=== PATIENT | male | born 2000 | race Caucasian/White ===

== ENCOUNTER 2021-09-03 21:09 | Emergency (ER) | payer SELFPAY ==
[~2021-09-03] VITALS: Ht 177.8 cm; Wt 86.2 kg
[2021-09-03 21:16] VITALS: BP 160/90
--- NOTE | 2021-09-03 21:16 | NUR ---
EPISTAXIS X 1.5 HOURS. "I WAS IN THE SHOWER, CLEARING MY THROAT AND IT JUST STARTED BLEEDING PMH: NONE [id number]
--- NOTE | 2021-09-03 21:21 | NUR ---
TO LOBBY FOLLOWING TRIAGE
[2021-09-03] MEDS ORDERED: TRANEXAMIC ACID 1,000 MG/10 ML VIAL MC ONE (22:40)
[2021-09-03] MEDS ORDERED: PHENYLEPHRINE 0.25% 15 ML BTL NS STA (22:41)
[2021-09-03] MEDS ORDERED: PHENYLEPHRINE 1% 15 ML BTL NS ONE (22:47)
[2021-09-03] MEDS ORDERED: OXYM20SP1 NS (22:50)
== END 2021-09-03 23:12 | disposition home or self-care (01) ==
LOC: MED 21:09
DX: R04.0 Epistaxis (principal)
CPT/HCPCS: 99282